=== PATIENT | male | born 1980 | race Caucasian/White ===

== ENCOUNTER 2023-11-05 08:23 | Emergency (ER) | payer SELFPAY ==
[2023-11-05 08:34] VITALS: RESP 18
--- NOTE | 2023-11-05 08:45 | ED ---
ENT HPI - General Chief complaint: Dental/Oral Stated complaint: Dental pain Time Seen by Provider: 11/05/23 08:28 Source: patient Mode of arrival: ambulatory Limitations: no limitations - History of Present Illness Initial comments: This is a 43-year-old male who presents to the emergency department for dental pain. Reports right-sided dental pain for the last week. This is along a tooth on the right lower jawline. He was prescribed amoxicillin initially, however symptoms did not improve and then he was switched to Augmentin. He started taking Augmentin 3 days ago. States that he continues to have pain. Feels like the pain goes near the ear, but denies any difficulty with his hearing. Denies any fever/chills. He has an appointment with his dentist in 2 weeks, but is concerned about symptoms getting worse. The last time he had a dental infection like this, his dentist put him on clindamycin and a Medrol Dosepak, which he states took care of the problem very quickly. MD complaint: tooth pain - Related Data Previous Rx's Medication Instructions Recorded clindamycin HCL 300 mg PO QID 10 Days #40 capsule 11/05/23 methylPREDNISolone Dose Pack 4 mg PO DIRECTED #21 tab 11/05/23 [Medrol Dose Pack] Allergies Allergy/AdvReac Type Severity Reaction Status Date / Time No Known Allergies Allergy Verified 11/05/23 08:28 Review of Systems ROS Statement: Those systems with pertinent positive or pertinent negative responses have been documented in the HPI. ROS Other: All systems not noted in ROS Statement are negative. Past Medical History Past Medical History: Asthma, Hyperlipidemia, Hypertension History of Any Multi-Drug Resistant Organisms: None Reported Additional Past Surgical History / Comment(s): deviated septum Past Psychological History: No Psychological Hx Reported Smoking Status: Never smoker Past Alcohol Use History: Occasional Past Drug Use History: None Reported General Exam Limitations: no limitations General appearance: alert, in no apparent distress Head exam: Present: atraumatic, normocephalic, normal inspection ENT exam: Present: other (Mild fullness to the right side of the face. Multiple dental caries. No palpable abscess. No swelling to the floor of the mouth or elevation of the tongue.) Respiratory exam: Present: normal lung sounds bilaterally. Absent: respiratory distress, wheezes, rales, rhonchi, stridor Cardiovascular Exam: Present: regular rate, normal rhythm, normal heart sounds. Absent: systolic murmur, diastolic murmur, rubs, gallop, clicks Neurological exam: Present: alert, oriented X3, CN II-XII intact Psychiatric exam: Present: normal affect, normal mood Skin exam: Present: warm, dry, intact, normal color. Absent: rash Course Vital Signs 11/05/23 08:25 Temperature 98.3 F Pulse Rate 85 Respiratory 18 Rate Blood Pressure 147/97 O2 Sat by Pulse 99 Oximetry Medical Decision Making - Medical Decision Making This is a 43-year-old male who presents to the emergency department for dental pain. Was pt. sent in by a medical professional or institution? @ -No Did you speak to anyone other than the patient for history? @ -No Did you review nursing and triage notes? @ -Yes, and I agree, it is accurate with regards to the patient's symptoms. Were old charts reviewed? @ -No Differential Diagnosis? @ -Differential Dental Pain: Dental abscess, chipped tooth, dental carries, gabino's angina, trigeminal neuralgia, this is not meant to be an all-inclusive list. EKG interpreted by me (3pts min.)? @ -Not obtained X-rays interpreted by me (1pt min.)? @ -Not obtained CT interpreted by me (1pt min.)? @ -Not obtained U/S interpreted by me (1pt. min.)? @ -Not obtained What testing was considered but not performed? (CT, X-rays, U/S, labs)? Why? @ -None What meds were considered but not given? Why? @ -None Did you discuss the management of the patient with other professionals? @ -No Did you reconcile home meds? @ -No Was smoking cessation discussed for >3mins.? @ -No Was critical care preformed (if so, how long)? @ -No Were there social determinants of health that impacted care today? How? (Homelessness, low income, unemployed, alcoholism, drug addiction, transportation, low edu. Level, literacy, decrease access to med. care, custodial, rehab)? @ -No Was there de-escalation of care discussed even if they declined? (Discuss DNR or withdrawal of care, Hospice)? @ -No What co-morbidities impacted this encounter? (DM, HTN, Smoking, COPD, CAD, Cancer, CVA, Hep., AIDS, mental health diagnosis, sleep apnea, morbid obesity)? @ -None Was patient admitted / discharged? @ -Discharged. Physical examination suggestive of developing dental infection. There is no palpable abscess that can be drained. He had no elevation of the tongue or swelling to the floor of the mouth such as Gabino's angina. Toradol administered in the emergency department. Patient advised that the last time he had a dental infection he was prescribed clindamycin along with a Medrol Dosepak, which resolved the issue very quickly and he would like to proceed with that management again. Prescription for clindamycin and a Medrol Dosepak prescribed with dosing instructions reviewed. He will otherwise follow-up with his dentist as scheduled. Undiagnosed new problem with uncertain prognosis? @ -None Drug Therapy requiring intensive monitoring for toxicity (Heparin, Nitro, Insulin, Cardizem)? @ -None Were any procedures done? @ -None Diagnosis/symptom? @ -Dental infection Acute, or Chronic, or Acute on Chronic? @ -Acute Uncomplicated (without systemic symptoms) or Complicated (systemic symptoms)? @ -Uncomplicated Side effects of treatment? @ -None Exacerbation, Progression, or Severe Exacerbation] @ -Not applicable Poses a threat to life or bodily function? @ -No Return precautions reviewed in depth, the patient is instructed to return to the emergency department with any new, worsening, or concerning symptoms. Patient verbalized understanding. This case was discussed in detail with the attending ED physician, Dr. Guevara. Presentation, findings, and treatment plan discussed in detail as well. Disposition Clinical Impression: Dental infection Disposition: HOME SELF-CARE Instructions (If sedation given, give patient instructions): Dental Abscess (ED), Toothache (ED) Additional Instructions: Return to the emergency department with any new, worsening, or concerning symptoms. Take the antibiotic as prescribed for 10 days. Take the Medrol Dosepak as prescribed. Follow-up with your dentist as scheduled. Prescriptions: clindamycin HCL 300 mg PO QID 10 Days #40 capsule methylPREDNISolone Dose Pack [Medrol Dose Pack] 4 mg PO DIRECTED #21 tab Is patient prescribed a controlled substance at d/c from ED?: No Referrals: Brandy Garcia DO [Primary Care Provider] - 1-2 days Time of Disposition: 08:45
[2023-11-05] MEDS: ACET/COD 300 MG/30 MG STARTER PACK 6 TAB BTL PO STA (08:52)
[2023-11-05] MEDS: CLINDAMYCIN 150 MG CAP PO STA ×2 (08:52→08:57)
[2023-11-05] MEDS: KETOROLAC 15 MG/ML 1 ML VIAL IM STA (08:53)
[2023-11-05] MEDS: DEXAMETHASONE SOD PHOSPHATE 10 MG/ML 1 ML VIAL IM STA (08:53)
[2023-11-05 09:21] VITALS: BP 140/82; PULSE 80; TEMP 98.1
== END 2023-11-05 09:04 | disposition home or self-care (01) ==
LOC: EC 08:23
DX: K04.7 Periapical abscess without sinus (principal)
CPT/HCPCS: 99283 ×2; 96372 ×3; J1100; J1885